=== PATIENT | female | born 1945 | race Caucasian/White ===

== ENCOUNTER → 2016-09-13 | Outpatient (CLI) | payer OTHER | LOC: GMAL 11:21 | PROVIDERS: ATTEND Family Medicine | DX: E55.9 Vitamin D deficiency, unspecified (principal) ==

== ENCOUNTER → 2017-04-30 | Outpatient (CLI) | payer OTHER | END | disposition home or self-care (01) | LOC: MAMMO 10:15 | PROVIDERS: ATTEND Family Medicine | DX: Z12.31 Encounter for screening mammogram for malignant neoplasm of breast (principal); D51.3 Other dietary vitamin B12 deficiency anemia; R53.82 Chronic fatigue, unspecified; E55.9 Vitamin D deficiency, unspecified | CPT/HCPCS: 82306; 82607; 84443; G0202 ==

== ENCOUNTER → 2017-11-13 | Outpatient (CLI) | payer OTHER | LOC: GMAL 11:10 | PROVIDERS: ATTEND Family Medicine | DX: D51.3 Other dietary vitamin B12 deficiency anemia (principal); D50.8 Other iron deficiency anemias; E55.9 Vitamin D deficiency, unspecified ==

== ENCOUNTER → 2017-12-31 | Outpatient (CLI) | payer OTHER | LOC: GMAL 10:49 | PROVIDERS: ATTEND Family Medicine | DX: D50.8 Other iron deficiency anemias (principal) ==

== ENCOUNTER → 2018-05-15 | Outpatient (CLI) | payer OTHER ==
--- NOTE | 2018-05-16 15:57 | MAM ---
EXAM DESCRIPTION: 3D Screening BILATERAL : Digital Mammography. CLINICAL HISTORY: 72 years Female ANNUAL SCREENING . No complaints. No personal or family history of breast cancer. Childbirth. Postmenopausal 49 years. HRT more than 5 years ago. Prior benign biopsy right breast. Lifetime risk of developing breast cancer (Tyrer-Cuzick model)(%): 4.6. COMPARISON: 2-D digital screening bilateral mammography 04/30/2017. TECHNIQUE: Bilateral CC and MLO projection full-field images, digital tomosynthesis mammographic technique. Bilateral digital 2-D full-field MLO images. CAD not available for tomosynthesis or 2-D images. FINDINGS: The breast parenchymal density pattern is: Scattered areas of fibroglandular density. No skin thickening or nipple retraction. Bilateral vascular calcifications. Bilateral solitary microcalcifications. Fibroglandular tissues around the posterior nipple line bilaterally. No new focal, stellate mass or density, focal asymmetry , and no suspicious microcalcifications bilaterally. Stable mammograms compared to prior study. Taking into account, differences in mammographic technique. IMPRESSION: Benign exam. BIRAD CATEGORY: 2 BENIGN FINDINGS. RECOMMENDATIONS: FOLLOW UP: Routine digital bilateral mammographic screening, one year interval from May 2018. Written communication explaining the IMPRESSION and follow-up, will be mailed to the patient and referring health care provider. According to the [employer], yearly mammograms are recommended starting at age 40 and continuing as long as a woman is in good health. Any breast change noted on a breast self-exam should be reported promptly to the patient's healthcare provider. Breast MRI is recommended for women with an approximately 20-25% or greater lifetime risk of breast cancer, including women with a strong family history of breast or ovarian cancer and women who have been treated for Hodgkin's disease. A negative mammographic report should not delay tissue diagnosis in patients with significant clinical history or physical findings. Extremely dense breast tissue limits the sensitivity of digital mammography. Electronically signed by: Jim Dixon MD 05/16/2018 3:55 PM PREDICTIVE MAINTENANCE TECHNICIAN
== END ==
LOC: MAMMO 09:30
PROVIDERS: ATTEND Family Medicine
DX: Z12.31 Encounter for screening mammogram for malignant neoplasm of breast (principal); D50.8 Other iron deficiency anemias

== ENCOUNTER → 2018-08-12 | Outpatient (CLI) | payer OTHER | LOC: GMAL 16:40 | PROVIDERS: ATTEND Family Medicine | DX: D50.8 Other iron deficiency anemias (principal) ==

== ENCOUNTER 2018-08-22 05:31 | Day surgery (SDC) | payer OTHER ==
[2018-08-22] MEDS ORDERED: LACTATED RINGERS 1,000 ML ONE (06:49)
[2018-08-22] MEDS ORDERED: PROPOFOL 200 MG/20 ML VIAL IV ONE (07:00)
[2018-08-22] MEDS ORDERED: LIDOCAINE 1% 10 ML VIAL INJ ONE (07:00)
--- NOTE | 2018-08-22 09:15 | OP ---
DATE OF PROCEDURE: 08/22/18 PREPROCEDURE DIAGNOSIS: 1. Positive Cologuard. POSTPROCEDURE DIAGNOSIS: 1. Rectal polyp status post resection. 2. Moderate to severe diverticulosis. 3. Internal hemorrhoids. PROCEDURE: 1. Colonoscopy. SURGEON: Darek Reddy MD COMPLICATIONS: No immediate complications. SEDATION: The patient was sedated via IV propofol by the Anesthesia Department. CONSENT: Prior to the procedure, risks, benefits and alternatives to the therapy were discussed with the patient. The risks included bleeding, infection, perforation and . The patient agreed to the procedure and signed a consent. PREPROCEDURE ANESTHESIA ASSESSMENT: An examination revealed no contraindication to sedation. Airway examination demonstrated a Mallampati class type 2, ASA grade assessment type 2. Throughout the procedure, the patient's vitals were closely monitored. PROCEDURE: The patient was placed in the left lateral decubitus position and a rectal examination was performed. The rectal examination was within normal limits. The Olympus colonoscope was passed in the anus, rectum, traversing the colon to the level of the cecum as identified by the appendiceal orifice. The scope was retracted and the mucosa was visualized. The entirety of the exam was performed under direct visualization. Retroflexion was performed in the rectum. Preparation quality was good. The withdrawal time was greater than 6 minutes. The patient tolerated the procedure well. FINDINGS: 1. Moderate to severe diverticulosis was found in the sigmoid colon, descending colon and transverse colon. 2. A flat 15 mm polyp was seen in the distal rectum. A hot snare was utilized for resection. Complete retrieval was achieved. No bleeding during or at the end of the procedure. A hemoclip for post polypectomy bleeding prophylaxis. 3. Non-bleeding internal hemorrhoids of medium size. 4. Otherwise, the colonic mucosa was unremarkable except for small angiectasia in the periappendiceal area. Random colonic biopsies were obtained with cold forceps to rule out microscopic colitis. RECOMMENDATION: 1. Return the patient home. 2. Resume previous diet. 3. Followup pathology results. 4. Repeat colonoscopy no later than 3 years. 5. Return to my office in the next 1 to 2 weeks. 6. Findings were discussed with the patient and family members. #[id number] [facility]
[2018-08-22 09:45] VITALS: BP 159/68; TEMP 98.5; O2SAT 97
== END 2018-08-22 09:38 | disposition home or self-care (01) ==
LOC: AMB 05:31
PROVIDERS: ATTEND Internal Medicine Gastroenterology
DX: R19.5 Other fecal abnormalities (principal); K62.1 Rectal polyp; K57.30 Diverticulosis of large intestine without perforation or abscess without bleeding; K64.8 Other hemorrhoids; I10 Essential (primary) hypertension; J44.9 Chronic obstructive pulmonary disease, unspecified; Z86.010 Personal history of colon polyps; Z79.899 Other long term (current) drug therapy
CPT/HCPCS: 00811; 45385; J3490; J7120

== ENCOUNTER → 2018-12-30 | Outpatient (CLI) | payer MEDICARE | LOC: GMAL 10:40 | PROVIDERS: ATTEND Family Medicine | DX: D51.3 Other dietary vitamin B12 deficiency anemia (principal); R53.82 Chronic fatigue, unspecified; E55.9 Vitamin D deficiency, unspecified; I10 Essential (primary) hypertension; E78.49 Other hyperlipidemia ==

== ENCOUNTER → 2019-05-19 | Outpatient (CLI) | payer MEDICARE ==
--- NOTE | 2019-05-21 20:49 | MAM ---
EXAM DESCRIPTION: 3D Screening BILATERAL : Digital Mammography. CLINICAL HISTORY: 73 years Female ANNUAL SCREENING . No complaints. No personal or family history of breast cancer. Menarche age 10. Childbirth at age 17. Postmenopausal 23. Benign right breast biopsy.. Lifetime risk of developing breast cancer (Tyrer-Cuzick model)(%): 4.4. COMPARISON: Bilateral screening digital breast tomosynthesis 15 May 2018. 2-D digital screening bilateral mammography 30 April 2017. TECHNIQUE: Bilateral CC and MLO projection full-field images, digital tomosynthesis mammographic technique. Bilateral digital 2-D full-field MLO images. CAD not available for tomosynthesis or 2-D images. FINDINGS: The breast parenchymal density pattern is: Scattered areas of fibroglandular density. No skin thickening or nipple retraction. Bilateral vascular calcifications. Bilateral solitary microcalcifications.. No new focal, stellate mass or density, focal asymmetry , and no suspicious microcalcifications bilaterally. Stable mammograms compared to prior study. IMPRESSION: Benign exam. BIRAD CATEGORY: 2 BENIGN FINDINGS. RECOMMENDATIONS: FOLLOW UP: Routine digital bilateral mammographic screening, one year interval from May 2019. Written communication explaining the IMPRESSION and follow-up, will be mailed to the patient and referring health care provider. According to the [employer], yearly mammograms are recommended starting at age 40 and continuing as long as a woman is in good health. Any breast change noted on a breast self-exam should be reported promptly to the patient's healthcare provider. Breast MRI is recommended for women with an approximately 20-25% or greater lifetime risk of breast cancer, including women with a strong family history of breast or ovarian cancer and women who have been treated for Hodgkin's disease. A negative mammographic report should not delay tissue diagnosis in patients with significant clinical history or physical findings. Extremely dense breast tissue limits the sensitivity of digital mammography. Electronically signed by: Jim Dixon MD 05/21/2019 8:48 PM [employer]
== END | disposition home or self-care (01) ==
LOC: MAMMO 09:00
PROVIDERS: ATTEND Family Medicine
DX: Z12.31 Encounter for screening mammogram for malignant neoplasm of breast (principal)

== ENCOUNTER → 2020-02-10 | Outpatient (CLI) | payer MEDICARE ==
--- NOTE | 2020-02-10 18:11 | MRI ---
EXAM DESCRIPTION: Cervical Spine CLINICAL HISTORY: CERVICALGIA COMPARISON: None Available TECHNIQUE: Multiplanar multi sequence noncontrast imaging FINDINGS: Mild convexity of the cervical spine to the right is observed.. Mild loss of vertebral body height is observed at the C5 and C6 levels.. Craniocervical junction and the cord are unremarkable. No extra spinous abnormality is detected. C2-3: Unremarkable. The disc is desiccated. Loss of disc height is noted. A central annular bulge is evident. Mild neural foraminal narrowing is noted as result of facet joint and uncovertebral joint arthritis bilaterally. C3-4: The disc is desiccated. Loss of disc height is noted. A central annular bulge is observed. Endplate degenerative changes are noted. Bilateral neural foraminal narrowing is observed more pronounced on the patient's left as result of facet joint and uncovertebral joint arthritis. C4-5: The disc is desiccated. Loss of disc height is observed. A left-sided 2.4 mm disc bulge is evident. Endplate degenerative changes are observed. Bilateral neural foraminal narrowing is observed as result of facet joint and uncovertebral joint arthritis more pronounced to the left. C5-6: The disc is desiccated. Loss of disc height is observed. Endplate degenerative changes are noted. A central 3.2 mm disc bulge is evident. Bilateral neural foraminal narrowing is observed as result of facet joint and uncovertebral joint arthritis. C6-7: The disc is desiccated. Loss of disc height is observed. Endplate degenerative changes are noted. A central 2.1 mm disc bulge is observed. Left neural foraminal narrowing is observed as result of facet joint and uncovertebral joint arthritis. There is also some right neural foraminal narrowing as well. C7-T1: Unremarkable. IMPRESSION: Multilevel cervical spondylosis is observed as described above. Electronically signed by: Francisco Davenport MD 02/10/2020 6:09 PM CDT
== END ==
LOC: MRI 08:56
PROVIDERS: ATTEND Family Medicine
DX: M47.892 Other spondylosis, cervical region (principal)

== ENCOUNTER → 2020-05-30 | Outpatient (CLI) | payer MEDICARE | LOC: GMAL 15:19 | PROVIDERS: ATTEND Family Medicine | DX: D51.3 Other dietary vitamin B12 deficiency anemia (principal); E55.9 Vitamin D deficiency, unspecified; I10 Essential (primary) hypertension; E78.49 Other hyperlipidemia ==

== ENCOUNTER → 2020-06-20 | Outpatient (CLI) | payer MEDICARE | LOC: GMAL 10:45 | PROVIDERS: ATTEND Family Medicine | DX: R53.82 Chronic fatigue, unspecified (principal); Z79.899 Other long term (current) drug therapy ==